=== PATIENT | female | born 1965 | race African-American/Black ===

== ENCOUNTER 2017-01-28 14:28 | Emergency (ER) | payer SELFPAY ==
[2017-01-28] MEDS ORDERED: ASPIRIN 81 MG TABLET, CHEWABLE PO ONE (15:08)
--- NOTE | 2017-01-28 15:14 | ER Document Report ---
ED General - General Chief Complaint: Chest Pain Stated Complaint: CHEST PAIN Time Seen by Provider: 01/28/17 15:08 Notes: Cardiac 51 years old female presents today with sudden onset of epigastric to substernal chest pain radiating to the back just about 2 when she was having her lunch. The pain is still present it is about 8/10 in intensity. Not associated with any nausea vomiting palpitation or diaphoresis. Denies any left arm numbness tingling sensation. She had similar symptoms before in 2013, had complete cardiac workup including cardiac catheterization, which turned out to be normal according to her. TRAVEL OUTSIDE OF THE [place] IN LAST 30 DAYS: No - Related Data Allergies/Adverse Reactions: acetaminophen [From Vicodin] Adverse Reaction (Verified 01/28/17 14:57) hydrocodone [From Vicodin] Adverse Reaction (Verified 01/28/17 14:57) Past Medical History - Social History Smoking Status: Never Smoker Chew tobacco use (# tins/day): No Frequency of alcohol use: None Drug Abuse: None Family History: Reviewed & Not Pertinent Patient has suicidal ideation: No Patient has homicidal ideation: No - Past Medical History Cardiac Medical History: Reports: Hx Hypercholesterolemia, Hx Hypertension Endocrine Medical History: Reports: Hx Diabetes Mellitus Type 2 Renal/ Medical History: Denies: Hx Peritoneal Dialysis Past Surgical History: Reports: Hx Hysterectomy, Hx Orthopedic Surgery - bilateral shoulder Review of Systems - Review of Systems Notes: REVIEW OF SYSTEMS: CONSTITUTIONAL : Denies fever, chills, or sweats. Denies recent illness. EENT: Denies eye, ear, throat, or mouth pain or symptoms. Denies nasal or sinus congestion or discharge. Denies throat, tongue, or mouth swelling or difficulty swallowing. CARDIOVASCULAR: Denies chest pain. Denies palpitations or racing or irregular heart beat. Denies ankle edema. RESPIRATORY: Denies cough, cold, or chest congestion. Denies shortness of breath, difficulty breathing, or wheezing. GASTROINTESTINAL: . GENITOURINARY: Denies difficulty urinating, painful urination, burning, frequency, blood in urine, or discharge. FEMALE GENITOURINARY: Denies vaginal bleeding, heavy or abnormal periods, irregular periods. Denies vaginal discharge or odor. MUSCULOSKELETAL: Denies back or neck pain or stiffness. Denies joint pain or swelling. SKIN: Denies rash, lesions or sores. HEMATOLOGIC : Denies easy bruising or bleeding. LYMPHATIC: Denies swollen, enlarged glands. NEUROLOGICAL: Denies confusion or altered mental status. Denies passing out or loss of consciousness. Denies dizziness or lightheadedness. Denies headache. Denies weakness or paralysis or loss of use of either side. Denies problems with gait or speech. Denies sensory loss, numbness, or tingling. Denies seizures. PSYCHIATRIC: Denies anxiety or stress. Denies depression, suicidal ideation, or homicidal ideation. ALL OTHER SYSTEMS REVIEWED AND NEGATIVE. PHYSICAL EXAMINATION: GENERAL: Well-appearing, well-nourished and in no acute distress. HEAD: Atraumatic, normocephalic. EYES: Pupils equal round and reactive to light, extraocular movements intact, conjunctiva are normal. ENT: Nares patent, oropharynx clear without exudates. Moist mucous membranes. NECK: Normal range of motion, supple without lymphadenopathy LUNGS: Breath sounds clear to auscultation bilaterally and equal. No wheezes rales or rhonchi. HEART: Regular rate and rhythm without murmurs ABDOMEN: Soft, nontender, nondistended abdomen. No guarding, no rebound. No masses appreciated. Female : deferred Musculoskeletal: Normal range of motion, no pitting or edema. No cyanosis. NEUROLOGICAL: Cranial nerves grossly intact. Normal speech, normal gait. Normal sensory, motor exams PSYCH: Normal mood, normal affect. SKIN: Warm, Dry, normal turgor, no rashes or lesions noted. Dictation was performed using u[employer]sit voice recognition software Physical Exam - Vital signs Vitals: Resp Pulse Ox 19 98 01/28/17 14:46 01/28/17 14:46 Course - Re-evaluation Re-evalutation: 01/28/17 19:18 She was reevaluated 3 times prior to this, her lab reports as well as ultrasound report was discussed with her. She was told that she has a fatty infiltration of the liver need to follow-up with primary care physician as well as reduce intake of fat. - Vital Signs Vital signs: Temp Pulse Resp BP Pulse Ox 98.7 F 20 106/69 97 01/28/17 14:49 01/28/17 18:01 01/28/17 18:01 01/28/17 18:01 - Laboratory Result Diagrams: 01/28/17 14:50 01/28/17 14:50 Laboratory results interpreted by me: 12/15/17 14:50 Glucose 314 H - Diagnostic Test Radiology results interpreted by me: 01/28/17 19:18 Ultrasound report as well as x-ray report was reviewed results dictated by radiologist Discharge - Discharge Clinical Impression: Fatty liver, GERD with esophagitis Abdominal pain Qualifiers: Abdominal location: upper abdomen, unspecified Qualified Code(s): R10.10 - Upper abdominal pain, unspecified Condition: Fair Disposition: HOME, SELF-CARE Instructions: Esophagitis ([facility]), Prilosec (Acid Pump Inhibitor) ([facility])
[2017-01-28 15:27] LABS: ABSOLUTE EOSINOPHILS # (AUTO) 0.1 10^3/uL (0.0-0.6); ABSOLUTE LYMPHOCYTES (AUTO) 2.2 10^3/uL (0.5-4.7); ABSOLUTE MONOCYTES (AUTO) 0.5 10^3/uL (0.1-1.4); ABSOLUTE NEUT (AUTO) 2.5 10^3/uL (1.7-8.2); BASOPHILS % (AUTO) 0.4 % (0-2); EOSINOPHILS % (AUTO) 1.2 % (0-6); HEMATOCRIT 37.8 % (36.0-47.0); HEMOGLOBIN 12.9 g/dL (12.0-15.5); HGB HCT DIFFERENCE 0.9; LYMPHOCYTES % (AUTO) 41.1 % (13-45); MEAN CORPUSCULAR HEMOGLOBIN 28.1 pg (27.0-33.4); MEAN CORPUSCULAR VOLUME 83 fl (80-97); MONOCYTES % (AUTO) 9.3 % (3-13); RED BLOOD COUNT 4.57 10^6/uL (3.72-5.28); RED CELL DISTRIBUTION WIDTH 13.3 % (11.5-14.0); WHITE BLOOD COUNT 5.2 10^3/uL (4.0-10.5)
[2017-01-28 15:45] LABS: ALANINE AMINOTRANSFERASE 29 U/L (9-52); ALBUMIN 3.9 g/dL (3.5-5.0); ALKALINE PHOSPHATASE 91 U/L (38-126); ANION GAP 14 (5-19); ASPARTATE AMINO TRANSFERASE 14 U/L (14-36); BILIRUBIN,DIRECT 0.1 mg/dL (0.0-0.4); BILIRUBIN,TOTAL 0.2 mg/dL (0.2-1.3); BLOOD UREA NITROGEN 10 mg/dL (7-20); CALCIUM 9.5 mg/dL (8.4-10.2); CARBON DIOXIDE 24 mmol/L (22-30); CHLORIDE 101 mmol/L (98-107); CREATINE KINASE 47 U/L (30-135); CREATININE RESULT 0.52 mg/dL (0.52-1.25); GLUCOSE 314 mg/dL (75-110); POTASSIUM 4.2 mmol/L (3.6-5.0); TOTAL PROTEIN 6.7 g/dL (6.3-8.2)
[2017-01-28 15:58] LABS: CREATINE KINASE MB < 0.22 ng/mL (<4.55); TROPONIN I < 0.012 ng/mL
--- NOTE | 2017-01-28 16:16 | RADIOLOGY REPORT (SQ) ---
EXAM DESCRIPTION: CHEST SINGLE VIEW COMPLETED DATE/TIME: 01/28/2017 4:00 pm REASON FOR STUDY: Chest pain COMPARISON: None. EXAM PARAMETERS: NUMBER OF VIEWS: One view. TECHNIQUE: Single frontal radiographic view of the chest acquired. RADIATION DOSE: NA LIMITATIONS: None. FINDINGS: LUNGS AND PLEURA: No opacities, masses or pneumothorax. No pleural effusion. MEDIASTINUM AND HILAR STRUCTURES: No masses. Contour normal. HEART AND VASCULAR STRUCTURES: Heart normal in size. Normal vasculature. BONES: No acute findings. HARDWARE: None in the chest. OTHER: No other significant finding. IMPRESSION: NO ACUTE RADIOGRAPHIC FINDING IN THE CHEST. TECHNICAL DOCUMENTATION: JOB ID: [id number] [employer]- All Rights Reserved
--- NOTE | 2017-01-28 16:28 | RADIOLOGY REPORT (SQ) ---
EXAM DESCRIPTION: U/S ABDOMEN LIMITED W/O DOP COMPLETED DATE/TIME: 01/28/2017 4:17 pm REASON FOR STUDY: Gallstones COMPARISON: None. TECHNIQUE: Dynamic and static grayscale images acquired of the abdomen and recorded on PACS. Additio nal selected color Doppler and spectral images recorded. LIMITATIONS: Midline bowel gas FINDINGS: PANCREAS: Midline pancreas unremarkable LIVER: Normal size. No masses. Mild increased echogenicity, question mild diffuse hepatocellular di sease or fatty infiltration. LIVER VASCULATURE: Normal directional flow of the main portal vein and hepatic veins. GALLBLADDER: No stones. Normal wall thickness. No pericholecystic fluid. ULTRASOUND-DETECTED LOPEZ'S SIGN: Negative. INTRAHEPATIC DUCTS AND COMMON DUCT: CBD and intrahepatic ducts normal caliber. No filling defects. D istal common duct not well seen due to midline bowel gas INFERIOR VENA CAVA: Not well seen AORTA: No aneurysm. RIGHT KIDNEY: Normal size. Normal echogenicity. No solid or suspicious masses. No hydronephrosis. No calcifications. PERITONEAL AND RIGHT PLEURAL SPACE: No ascites or effusions. OTHER: No other significant findings. IMPRESSION: Echogenic liver from fatty infiltration or diffuse hepatocellular disease No gallstones, gallbladder wall thickening or pericholecystic fluid. No biliary ductal dilatation TECHNICAL DOCUMENTATION: JOB ID: [id number] [employer]- All Rights Reserved
[2017-01-28] MEDS ORDERED: MAG CARB/AL HYDROX/ALGINIC AC 355 ML BOTTLE PO PRN (17:18)
[2017-01-28] MEDS ORDERED: MAG HYDROX/AL HYDROX/SIMETH SUSP 30 ML UDCUP PO PRN (17:18)
[2017-01-28] MEDS ORDERED: LIDOCAINE 2% VISCOUS SOLN 20 ML UDCUP PO ONE (17:18)
[2017-01-28] MEDS ORDERED: KETOROLAC TROMETHAMINE INJ/PF 30 MG/1 ML SDV IV ONE (18:24)
[2017-01-28 20:02] VITALS: BP 112/76
--- NOTE | 2017-01-29 05:40 | EKG REPORT ---
SEVERITY:- NORMAL ECG - SINUS RHYTHM : Confirmed by: Hawk Rivas 29-Jan-2017 05:40:20
== END 2017-01-28 20:21 | disposition home or self-care (01) ==
LOC: ER 14:28
DX: K76.0 Fatty (change of) liver, not elsewhere classified (principal); K21.0 Gastro-esophageal reflux disease with esophagitis; R10.10 Upper abdominal pain, unspecified; R07.9 Chest pain, unspecified; R10.13 Epigastric pain; M54.9 Dorsalgia, unspecified
CPT/HCPCS: 93005; 99285; 96374; 36415; 82553; 82550; 85025; 80053; 84484; 71010; 76705; 93010; J3490 ×2; J1885

== ENCOUNTER 2017-05-27 15:58 | Emergency (ER) | payer SELFPAY ==
[2017-05-27 16:25] VITALS: BP 148/88
--- NOTE | 2017-05-27 16:40 | ER Document Report ---
HPI - HPI Patient complains to provider of: right ches, neck shoulder pain Onset: Other - few hours ago Pain Level: 4 Context: 52 yo DM (insulin) female c/o right neck, shoulder, upper chest pain and mild headache since she tried to get jacket off at 1:30 pm while at work and felt a sudden onset of painful pull to the area. Worse now with moving right margie turning head to the left. No recent illness. No fever or chills. PCP: Jonnathan MAZARIEGOS- lives in [facility] [place]. - CONSTITUTIONAL Constitutional: DENIES: Fever, Chills - NEURO Neurology: REPORTS: Headache - MUSCULOSKELETAL Musculoskeletal: REPORTS: Extremity pain - right arm Past Medical History - General Information source: Patient - Social History Smoking Status: Never Smoker Chew tobacco use (# tins/day): No Frequency of alcohol use: None Drug Abuse: None Lives with: Spouse/Significant other Family History: Reviewed & Not Pertinent Patient has suicidal ideation: No Patient has homicidal ideation: No - Past Medical History Cardiac Medical History: Reports: Hx Hypercholesterolemia, Hx Hypertension Endocrine Medical History: Reports: Hx Diabetes Mellitus Type 2 Renal/ Medical History: Denies: Hx Peritoneal Dialysis Past Surgical History: Reports: Hx Hysterectomy, Hx Orthopedic Surgery - bilateral shoulder Vertical Provider Document - CONSTITUTIONAL Agree With Documented VS: Yes Exam Limitations: No Limitations General Appearance: Mild Distress - INFECTION CONTROL TRAVEL OUTSIDE OF THE [place] IN LAST 30 DAYS: No - HEENT HEENT: Normocephalic - NECK Neck: Supple - tender right SCM to the clavicle insertion and trapezius muscle top and posterior right shoulder - RESPIRATORY Respiratory: Breath Sounds Normal, No Respiratory Distress - CARDIOVASCULAR Cardiovascular: Regular Rate, Regular Rhythm - MUSCULOSKELETAL/EXTREMETIES Musculoskeletal/Extremeties: MAEW - NEURO Level of Consciousness: Awake, Alert - DERM Integumentary: Warm, Dry, No Rash Course - Re-evaluation Re-evalutation: 05/27/17 16:58 Patient states that she is okay taking hydrocodone as long as she takes a Benadryl. - Vital Signs Vital signs: Temp Pulse Resp BP Pulse Ox 98.6 F 69 16 148/88 H 99 05/27/17 16:23 05/27/17 16:23 05/27/17 16:23 05/27/17 16:23 05/27/17 16:23 Discharge - Discharge Clinical Impression: right neck muscle strain Condition: Good Disposition: HOME, SELF-CARE Instructions: Warm Packs ([facility]), Ibuprofen (General) ([facility]), Muscle Relaxers ([facility] ), Muscle Strain ([facility]), Oral Narcotic Medication ([facility]) Additional Instructions: warm compress Gentle range of motion [id number] Motrin Flexeril as a muscle relaxer hydrocodone few pain pills Prescriptions: Hydrocodone Bit/Acetaminophen [Hydrocodon-Acetaminophen 5-325] 1 each PO Q4HP PRN #10 tablet PRN Reason: Forms: Return to Work
== END 2017-05-27 17:07 | disposition home or self-care (01) ==
LOC: ER 15:58
DX: S16.1XXA Strain of muscle, fascia and tendon at neck level, initial encounter (principal); M54.2 Cervicalgia; M25.511 Pain in right shoulder; R07.9 Chest pain, unspecified; R51 Headache; X58.XXXA Exposure to other specified factors, initial encounter; Y99.0 Civilian activity done for income or pay; I10 Essential (primary) hypertension; E11.9 Type 2 diabetes mellitus without complications
CPT/HCPCS: 99283

== ENCOUNTER 2017-06-28 10:11 | Emergency (ER) | payer SELFPAY ==
[2017-06-28] MEDS ORDERED: OXYCODONE HCL IR 5 MG TABLET PO ONE (10:32)
--- NOTE | 2017-06-28 10:35 | ER Document Report ---
ED Medical Screen (RME) - General Chief Complaint: Groin Pain Stated Complaint: SHORTNESS OF BREATH, GROIN PAIN Time Seen by Provider: 06/28/17 10:23 Notes: RAPID MEDICAL EVALUATION DISCLOSURE I have seen this patient as part of a Rapid Medical Evaluation and, if applicable, placed any initially appropriate orders. The patient will be seen and fully evaluated, including a full history and physical exam, by a provider ( in Main ED or Fast Track) when a room becomes available. 52-year-old female here with complaints of sudden onset right groin pain that started yesterday evening and has progressively worsened since then. Pain is worse with movement. She has tried taking Aleve for the symptoms. This morning , she started to have some shortness of breath and chest tightness that has also progressively worsened. She told nursing staff got worse whenever the groin pain got worse however she is unable to tell me if there is any association. She is able to tell me the chest tightness does not worsen with exertion. She has a previous history of TIA but denies history of CAD dissection hernias. EXAM CTAB RRR Minimal right proximal medial thigh inguinal crease TTP (however exam is limited in triage room) NOTE Patient reports no allergy to oxycodone and that she has taken this in the past TRAVEL OUTSIDE OF THE [place] IN LAST 30 DAYS: No - Related Data Allergies/Adverse Reactions: acetaminophen [From Vicodin] Adverse Reaction (Verified 06/28/17 10:21) hydrocodone [From Vicodin] Adverse Reaction (Verified 06/28/17 10:21) Past Medical History - Past Medical History Cardiac Medical History: Reports: Hx Hypercholesterolemia, Hx Hypertension Endocrine Medical History: Reports: Hx Diabetes Mellitus Type 2 Renal/ Medical History: Denies: Hx Peritoneal Dialysis Past Surgical History: Reports: Hx Hysterectomy, Hx Orthopedic Surgery - bilateral shoulder
[2017-06-28 11:08] LABS: ABSOLUTE LYMPHOCYTES (AUTO) 1.9 10^3/uL (0.5-4.7); ABSOLUTE MONOCYTES (AUTO) 0.4 10^3/uL (0.1-1.4); ABSOLUTE NEUT (AUTO) 1.6 10^3/uL (1.7-8.2); BASOPHILS % (AUTO) 0.8 % (0-2); HEMATOCRIT 41.8 % (36.0-47.0); HEMOGLOBIN 13.9 g/dL (12.0-15.5); LYMPHOCYTES % (AUTO) 47.1 % (13-45); MEAN CORPUSCULAR HEMOGLOBIN 27.6 pg (27.0-33.4); MEAN CORPUSCULAR HGB CONC 33.2 g/dL (32.0-36.0); MEAN CORPUSCULAR VOLUME 83 fl (80-97); MONOCYTES % (AUTO) 10.5 % (3-13); PLATELET COUNT 222 10^3/uL (150-450); RED BLOOD COUNT 5.04 10^6/uL (3.72-5.28); RED CELL DISTRIBUTION WIDTH 13.4 % (11.5-14.0); SEGMENTED NEUTROPHILS % (AUTO) 40.6 % (42-78); TOTAL CELLS COUNTED % (AUTO) 100 %
--- NOTE | 2017-06-28 11:26 | RADIOLOGY REPORT (SQ) ---
EXAM DESCRIPTION: CHEST 2 VIEWS COMPLETED DATE/TIME: 06/28/2017 11:02 am REASON FOR STUDY: CP SOB COMPARISON: AP chest 01/28/2017 EXAM PARAMETERS: NUMBER OF VIEWS: two views TECHNIQUE: Digital Frontal and Lateral radiographic views of the chest acquired. RADIATION DOSE: NA LIMITATIONS: none FINDINGS: LUNGS AND PLEURA: No opacities, masses or pneumothorax. No pleural effusion. MEDIASTINUM AND HILAR STRUCTURES: No masses or contour abnormalities. HEART AND VASCULAR STRUCTURES: Heart normal size. No evidence for failure. BONES: No acute findings. HARDWARE: None in the chest. OTHER: No other significant finding. IMPRESSION: NO ACUTE RADIOGRAPHIC FINDING IN THE CHEST. TECHNICAL DOCUMENTATION: JOB ID: [id number] [employer] All Rights Reserved Reading location - IP/workstation name: [email or web address]
[2017-06-28 11:30] LABS: ANION GAP 13 (5-19); BLOOD UREA NITROGEN 13 mg/dL (7-20); CALCIUM 9.6 mg/dL (8.4-10.2); CARBON DIOXIDE 28 mmol/L (22-30); CHLORIDE 98 mmol/L (98-107); POTASSIUM 4.1 mmol/L (3.6-5.0); SODIUM 138.9 mmol/L (137-145)
--- NOTE | 2017-06-28 11:37 | ER Document Report ---
ED General - General Chief Complaint: Groin Pain Stated Complaint: SHORTNESS OF BREATH, GROIN PAIN Time Seen by Provider: 06/28/17 10:23 Mode of Arrival: Ambulatory Information source: Patient Notes: 52-year-old female needs a right groin pain since yesterday. Patient denies any trauma denies any fevers or chills denies any nausea vomiting diarrhea patient admits to shortness of breath intermittent TRAVEL OUTSIDE OF THE [place] IN LAST 30 DAYS: No - HPI Onset: Yesterday Onset/Duration: Sudden Quality of pain: Sharp Severity: Mild Pain Level: 1 Associated symptoms: Other Exacerbated by: Denies Relieved by: Denies Similar symptoms previously: No Recently seen / treated by doctor: No - Related Data Allergies/Adverse Reactions: acetaminophen [From Vicodin] Adverse Reaction (Verified 06/28/17 10:21) hydrocodone [From Vicodin] Adverse Reaction (Verified 06/28/17 10:21) Past Medical History - Social History Smoking Status: Never Smoker Cigarette use (# per day): No Chew tobacco use (# tins/day): No Smoking Education Provided: No Frequency of alcohol use: None Drug Abuse: None Family History: Reviewed & Not Pertinent Patient has suicidal ideation: No Patient has homicidal ideation: No - Past Medical History Cardiac Medical History: Reports: Hx Hypercholesterolemia, Hx Hypertension Endocrine Medical History: Reports: Hx Diabetes Mellitus Type 2 Renal/ Medical History: Denies: Hx Peritoneal Dialysis Past Surgical History: Reports: Hx Hysterectomy, Hx Orthopedic Surgery - bilateral shoulder Review of Systems - Review of Systems Notes: REVIEW OF SYSTEMS: CONSTITUTIONAL : Denies fever, chills, or sweats. Denies recent illness. EENT: Denies eye, ear, throat, or mouth pain or symptoms. Denies nasal or sinus congestion or discharge. Denies throat, tongue, or mouth swelling or difficulty swallowing. CARDIOVASCULAR: Denies chest pain. Denies palpitations or racing or irregular heart beat. Denies ankle edema. RESPIRATORY: Denies cough, cold, or chest congestion. Denies shortness of breath, difficulty breathing, or wheezing. GASTROINTESTINAL: Denies abdominal pain or distention. Denies nausea, vomiting , or diarrhea. Denies blood in vomitus, stools, or per rectum. Denies black, tarry stools. Denies constipation. GENITOURINARY: Denies difficulty urinating, painful urination, burning, frequency, blood in urine, or discharge. FEMALE GENITOURINARY: Denies vaginal bleeding, heavy or abnormal periods, irregular periods. Denies vaginal discharge or odor. MUSCULOSKELETAL: Admits to right groin pain SKIN: Denies rash, lesions or sores. HEMATOLOGIC : Denies easy bruising or bleeding. LYMPHATIC: Denies swollen, enlarged glands. NEUROLOGICAL: Denies confusion or altered mental status. Denies passing out or loss of consciousness. Denies dizziness or lightheadedness. Denies headache. Denies weakness or paralysis or loss of use of either side. Denies problems with gait or speech. Denies sensory loss, numbness, or tingling. Denies seizures. PSYCHIATRIC: Denies anxiety or stress. Denies depression, suicidal ideation, or homicidal ideation. ALL OTHER SYSTEMS REVIEWED AND NEGATIVE. PHYSICAL EXAMINATION: GENERAL: Well-appearing, well-nourished and in no acute distress. HEAD: Atraumatic, normocephalic. EYES: Pupils equal round and reactive to light, extraocular movements intact, conjunctiva are normal. ENT: Nares patent, oropharynx clear without exudates. Moist mucous membranes. NECK: Normal range of motion, supple without lymphadenopathy LUNGS: Breath sounds clear to auscultation bilaterally and equal. No wheezes rales or rhonchi. HEART: Regular rate and rhythm without murmurs ABDOMEN: Soft, nontender, nondistended abdomen. No guarding, no rebound. No masses appreciated. Female : External examination performed with nurse in the room notes tenderness in the groin itself but not including the pubis there is no erythema Musculoskeletal: Normal range of motion, no pitting or edema. No cyanosis. NEUROLOGICAL: Cranial nerves grossly intact. Normal speech, normal gait. Normal sensory, motor exams PSYCH: Normal mood, normal affect. SKIN: Warm, Dry, normal turgor, no rashes or lesions noted. Dictation was performed using [employer] voice recognition software Physical Exam - Vital signs Vitals: Temp Pulse Resp BP Pulse Ox 98.4 F 97 20 132/80 H 94 06/28/17 10:16 06/28/17 10:16 06/28/17 10:16 06/28/17 10:16 06/28/17 10:16 Course - Re-evaluation Re-evalutation: 06/28/17 11:37 There is no external signs of infection or concerns, ultrasound pending to rule out a DVT 06/28/17 12:22 Doppler is negative, glucose is elevated no sign of infectious process, patient given insulin will recheck her blood sugar 06/28/17 14:05 pt notes her glucose is elevated since she doesnt have needles to use, we provided it to her . pt will be treated as muscle pain as i dont see any sign of infection or any other life threatening concerns. pt made aware to return immediately if symptoms worsen as a specific diagnosis is not noted. After performing a Medical Screening Examination, I estimate there is LOW risk for OPEN FRACTURE, COMPARTMENT SYNDROME, TENDON RUPTURE, ACUTE NEUROVASCULAR INJURY, or RETAINED FOREIGN BODY, thus I consider the discharge disposition reasonable. Also, there is no evidence or peritonitis, sepsis, or toxicity. I have reevaluated this patient multiple times and no significant life threatening changes are noted. The patient and I have discussed the diagnosis and risks, and we agree with discharging home with close follow-up with the understanding that symptoms and presentations can change. We also discussed returning to the Emergency Department immediately if new or worsening symptoms occur. We have discussed the symptoms which are most concerning (e.g., changing or worsening pain, fever, numbness, weakness, cool or painful digits) that necessitate immediate return. - Vital Signs Vital signs: Temp Pulse Resp BP Pulse Ox 98.4 F 97 20 132/80 H 94 06/28/17 10:16 06/28/17 10:16 06/28/17 10:16 06/28/17 10:16 06/28/17 10:16 - Laboratory Result Diagrams: 06/28/17 10:51 06/28/17 10:51 Laboratory results interpreted by me: 06/28/17 06/28/17 06/28/17 10:20 10:51 10:51 Seg Neutrophils % 40.6 L Lymphocytes % 47.1 H Absolute Neutrophils 1.6 L Glucose 518 H* POC Glucose Urine Glucose (UA) >=500 H Urine Ketones TRACE H 06/28/17 13:27 Seg Neutrophils % Lymphocytes % Absolute Neutrophils Glucose POC Glucose 364 H Urine Glucose (UA) Urine Ketones Critical Care Note - Critical Care Note Total time excluding time spent on procedures (mins): 40 Comments: 40 minutes of critical care time spent in direct contact evaluating and reevaluating the patient, treating symptoms, reviewing labs and studies and speaking with family and consultants excluding any procedures Discharge - Discharge Clinical Impression: Hyperglycemia, Right groin pain Condition: Stable Disposition: HOME, SELF-CARE Instructions: Muscle Strain ([facility]) Prescriptions: Cyclobenzaprine HCl [Flexeril 10 mg Tablet] 10 mg PO TIDP PRN #20 tab PRN Reason: Referrals: STEPHANI JURADO, [employer] ATTENDANT [Primary Care Provider] - Follow up tomorrow
[2017-06-28 11:39] LABS: GLUCOSE 518 mg/dL (75-110)
[2017-06-28 11:41] LABS: NT PRO BNP 37 pg/mL (5-900)
[2017-06-28 11:42] LABS: TROPONIN I < 0.012 ng/mL
[2017-06-28 11:43] LABS: APPEARANCE,URINE CLEAR; BILIRUBIN,URINE NEGATIVE (NEGATIVE); COLOR,URINE STRAW; GLUCOSE, URINE >=500 mg/dL (NEGATIVE); KETONES,URINE TRACE mg/dL (NEGATIVE); LEUKOCYTE ESTERASE,URINE NEGATIVE (NEGATIVE); NITRITE,URINE NEGATIVE (NEGATIVE); PROTEIN,URINE NEGATIVE (NEGATIVE); UROBILINOGEN,URINE NEGATIVE mg/dL (<2.0)
[2017-06-28] MEDS ORDERED: INSULIN REG, HUMAN 100 UNIT/ML 3 ML VIAL (PYX) SUBCUT ONE (11:48)
[2017-06-28 14:24] VITALS: BP 128/78
--- NOTE | 2017-06-28 21:14 | EKG REPORT ---
SEVERITY:- NORMAL ECG - SINUS RHYTHM : Confirmed by: Hawk Rivas 28-Jun-2017 21:13:36
--- NOTE | 2017-06-29 08:15 | XCELERA REPORT ---
[address] [address] Lower Extremity Venous Evaluation Name: KENZIE SAMUEL Age: 52 yrs Gender: Female : 1965 Patient Status: Emergency Patient Location: ER Study Date: 06/28/2017 11:56 AM Procedure: Color flow and duplex imaging of the veins of the right lower extremity as well as the left Common Femoral vein. Reason For Study: RLE Ordering Physician: ANA GOTTLIEB Performed By: Rasta Lema Right Sided Venous Evaluation Normal vessel filling wall to wall, compression and augmentation as well as Colour flow down to the infrageniculate veins. Left Sided Venous Evaluation The left common femoral vein is fully compressible. Spontaneous and phasic flow is present in the left common femoral vein. Interpretation Summary No duplex evidence of DVT or obstruction in the right lower extremity nor in the left Common Femoral vein. : ANA GOTTLIEB > Javad Curry
== END 2017-06-28 14:40 | disposition home or self-care (01) ==
LOC: ER 10:11
DX: R06.02 Shortness of breath (principal); R10.30 Lower abdominal pain, unspecified; E11.65 Type 2 diabetes mellitus with hyperglycemia; E78.00 Pure hypercholesterolemia, unspecified; I10 Essential (primary) hypertension; Z88.6 Allergy status to analgesic agent; Z90.710 Acquired absence of both cervix and uterus
CPT/HCPCS: 93005; 99285; 36415; 82962; 85025; 80048; 81001; 84484; 83880; 93971 ×2; 71046; 93010; J1815

== ENCOUNTER 2017-07-12 09:42 | Emergency (ER) | payer SELFPAY ==
[2017-07-12 10:08] LABS: ABSOLUTE EOSINOPHILS # (AUTO) 0.1 10^3/uL (0.0-0.6); ABSOLUTE LYMPHOCYTES (AUTO) 1.9 10^3/uL (0.5-4.7); ABSOLUTE MONOCYTES (AUTO) 0.4 10^3/uL (0.1-1.4); ABSOLUTE NEUT (AUTO) 2.4 10^3/uL (1.7-8.2); BASOPHILS % (AUTO) 0.6 % (0-2); EOSINOPHILS % (AUTO) 1.2 % (0-6); HEMATOCRIT 39.1 % (36.0-47.0); LYMPHOCYTES % (AUTO) 39.4 % (13-45); MEAN CORPUSCULAR HEMOGLOBIN 27.7 pg (27.0-33.4); MEAN CORPUSCULAR HGB CONC 33.1 g/dL (32.0-36.0); MEAN CORPUSCULAR VOLUME 84 fl (80-97); MONOCYTES % (AUTO) 8.4 % (3-13); PLATELET COUNT 204 10^3/uL (150-450); RED BLOOD COUNT 4.68 10^6/uL (3.72-5.28); RED CELL DISTRIBUTION WIDTH 13.5 % (11.5-14.0); SEGMENTED NEUTROPHILS % (AUTO) 50.4 % (42-78); TOTAL CELLS COUNTED % (AUTO) 100 %; WHITE BLOOD COUNT 4.8 10^3/uL (4.0-10.5)
--- NOTE | 2017-07-12 10:36 | RADIOLOGY REPORT (SQ) ---
EXAM DESCRIPTION: CHEST SINGLE VIEW COMPLETED DATE/TIME: 07/12/2017 10:25 am REASON FOR STUDY: bed 16 cp COMPARISON: 06/28/2017 EXAM PARAMETERS: NUMBER OF VIEWS: One view. TECHNIQUE: Single frontal radiographic view of the chest acquired. RADIATION DOSE: NA LIMITATIONS: None. FINDINGS: LUNGS AND PLEURA: No opacities, masses or pneumothorax. No pleural effusion. MEDIASTINUM AND HILAR STRUCTURES: No masses. Contour normal. HEART AND VASCULAR STRUCTURES: Heart normal in size. Normal vasculature. BONES: No acute findings. HARDWARE: None in the chest. OTHER: No other significant finding. IMPRESSION: NO ACUTE RADIOGRAPHIC FINDING IN THE CHEST. TECHNICAL DOCUMENTATION: JOB ID: [id number] [employer]- All Rights Reserved Reading location - IP/workstation name: [email or web address]
--- NOTE | 2017-07-12 10:42 | ER Document Report ---
ED Cardiac <BILLY DANG - Last Filed: 07/12/17 11:45> - General Mode of Arrival: Medic Information source: Patient TRAVEL OUTSIDE OF THE [place] IN LAST 30 DAYS: No <PACO NAIR - Last Filed: 07/12/17 11:52> - General Chief Complaint: Chest Pain Stated Complaint: CHEST PAIN Time Seen by Provider: 07/12/17 10:32 Notes: 52 y.o female with HLD, HTN, and type 2 DM presents to the ED with CP of onset around 0830 this morning on her way to work. Pt describes it as a sudden tightness that went straight to her back and up under her shoulder blade on the left side. She reports that she was just going to drive here because she was far away from home but the pain worsened so she called EMS. Pt complains that it is hard to breath due to the tightness; she denies any pain when she coughs. She reports a normal cardiac catheterization in the past and denies any problems with her heart in the past. (PACO NAIR) - Related Data Allergies/Adverse Reactions: acetaminophen [From Vicodin] Adverse Reaction (Verified 06/28/17 10:21) hydrocodone [From Vicodin] Adverse Reaction (Verified 06/28/17 10:21) Past Medical History - General Information source: Patient - Social History Smoking Status: Unknown if Ever Smoked Family History: Reviewed & Not Pertinent - Past Medical History Cardiac Medical History: Reports: Hx Hypercholesterolemia, Hx Hypertension Endocrine Medical History: Reports: Hx Diabetes Mellitus Type 2 Renal/ Medical History: Denies: Hx Peritoneal Dialysis Past Surgical History: Reports: Hx Hysterectomy, Hx Orthopedic Surgery - bilateral shoulder <PACO NAIR - Last Filed: 07/12/17 11:52> Review of Systems - Review of Systems Constitutional: No symptoms reported EENT: No symptoms reported Cardiovascular: See HPI, Chest pain - tightness Respiratory: See HPI, Hurts to breathe Gastrointestinal: No symptoms reported Genitourinary: No symptoms reported Female Genitourinary: No symptoms reported Musculoskeletal: No symptoms reported Skin: No symptoms reported Hematologic/Lymphatic: No symptoms reported Neurological/Psychological: No symptoms reported -: Yes All other systems reviewed and negative <PACO NAIR - Last Filed: 07/12/17 11:52> Physical Exam <BILLY DANG - Last Filed: 07/12/17 11:45> <PACO NAIR - Last Filed: 07/12/17 11:52> - Vital signs Vitals: Resp 20 07/12/17 10:06 - Notes Notes: Physical Exam: General: Alert, appears well. HEENT: Normocephalic. Atraumatic. PERRL. Extraocular movements intact. Oropharynx clear. Neck: Supple. Non-tender. Respiratory: No respiratory distress. Clear and equal breath sounds bilaterally. Cardiovascular: Regular rate and rhythm. No murmurs, no peripheral edema. Left anterior chest wall pain and left scapular pain. Abdominal: Morbidly obese. Normal Inspection. Non-tender. No distension. Normal Bowel Sounds. Back: Non-tender. No deformity or step off. Extremities: Moves all four extremities. Upper extremities: Normal inspection. Normal ROM. Lower extremities: Normal inspection. No edema. Normal ROM. Neurological: Normal cognition. AAOx3. Normal speech. (PACO NAIR) Course - Laboratory Result Diagrams: 07/12/17 09:20 07/12/17 10:52 - Diagnostic Test Radiology reviewed: Reports reviewed - Chest x-ray is unremarkable. <BILLY DANG - Last Filed: 07/12/17 11:45> - Laboratory Result Diagrams: 07/12/17 09:20 07/12/17 10:52 <PAOC NAIR - Last Filed: 07/12/17 11:52> - Re-evaluation Re-evalutation: 07/12/17 11:50 The patient's EKG is normal. Lab work is normal other than her chronically elevated blood sugars. Her d-dimer is undetectable. She does provide a history suggesting an abnormal Cardiolite stress test due to her obesity and the diaphragm pushing up on the inferior wall of the heart leading to a cardiac catheterization being done. Cardiac catheterization was normal. (BILLY DANG) - Vital Signs Vital signs: Temp Pulse Resp BP Pulse Ox 07/12/17 10:06 - Laboratory Laboratory results interpreted by me: 07/12/17 07/12/17 09:20 10:52 Creatinine 0.50 L Glucose 343 H Hemoglobin A1c % 13.2 H Total Protein 6.2 L Discharge <BILLY DANG - Last Filed: 07/12/17 11:45> <PACO NAIR - Last Filed: 07/12/17 11:52> - Discharge Clinical Impression: Chest wall pain, Poorly controlled diabetes mellitus Dyspnea Qualifiers: Dyspnea type: unspecified Qualified Code(s): R06.00 - Dyspnea, unspecified Condition: Stable Disposition: HOME, SELF-CARE Additional Instructions: Chest Wall Pain: Your chest pain has been diagnosed as coming from the chest wall. This is often caused by straining the muscles or joints in the chest during physical activity, direct trauma, coughing, or vigorous vomiting. Persons with arthritis are especially prone to this type of pain, due to inflammation of the cartilage joints near the breast bone. Occasionally, no cause can be found. Rest from strenuous physical activity. This kind of chest pain is usually made worse by movement of the chest. Depending on the symptoms, we may prescribe medicine for pain, muscle relaxation, and antiinflammatory effects. If the pain is new, and seems to be due to muscle strain, cold packs can help. Otherwise, apply gentle warmth to the painful area for 15 minutes every hour or two. You should contact the doctor immediately if things change. Further evaluation is needed if you develop a fever or cough, if the nature of the pain changes, or if you become short of breath. Hyperglycemia (High Blood Sugar): You have an abnormally high blood sugar. Uncontrolled high blood sugar leads to early heart disease, strokes, nerve damage, eye damage, and kidney damage. Call the physician if there is faintness, excess sleepiness, or very rapid breathing. Your chest discomfort seems to be related to the chest wall and does not involve your heart or your lungs. Your blood sugars have been poorly controlled for the last several months. You should see your doctor this week and take the copies of the lab work I have provided to review your diabetes management. Take Tylenol and ibuprofen for your chest wall pain as needed. RETURN TO THE EMERGENCY ROOM IF ANY NEW OR WORSENING SYMPTOMS. Referrals: FAUSTO JORDAN, [Primary Care Provider] - Follow up in 3-5 days Scribe Attestation: 07/12/17 11:49 I personally performed the services described in the documentation, reviewed and edited the documentation which was dictated to the scribe in my presence, and it accurately records my words and actions. (BILLY DANG) Scribe Documentation - Scribe Written by Rick:: Rick Gotti [id number] 07/12/2017 acting as scribe for :: Yasmeen <PACO NAIR - Last Filed: 07/12/17 11:52>
[2017-07-12 10:44] LABS: CREATINE KINASE MB 0.51 ng/mL (<4.55)
[2017-07-12 10:48] LABS: TROPONIN I < 0.012 ng/mL
[2017-07-12 11:21] LABS: ALANINE AMINOTRANSFERASE 31 U/L (9-52); ALBUMIN 3.5 g/dL (3.5-5.0); ALKALINE PHOSPHATASE 70 U/L (38-126); ANION GAP 11 (5-19); ASPARTATE AMINO TRANSFERASE 14 U/L (14-36); BILIRUBIN,DIRECT 0.2 mg/dL (0.0-0.4); BILIRUBIN,TOTAL 0.3 mg/dL (0.2-1.3); BLOOD UREA NITROGEN 15 mg/dL (7-20); CALCIUM 9.2 mg/dL (8.4-10.2); CARBON DIOXIDE 27 mmol/L (22-30); CHLORIDE 101 mmol/L (98-107); CREATINE KINASE 44 U/L (30-135); GLUCOSE 343 mg/dL (75-110); POTASSIUM 4.4 mmol/L (3.6-5.0); SODIUM 139.3 mmol/L (137-145); TOTAL PROTEIN 6.2 g/dL (6.3-8.2)
[2017-07-12] MEDS ORDERED: KETOROLAC TROMETHAMINE INJ/PF 30 MG/1 ML SDV IV ONE (11:43)
[2017-07-12 12:07] VITALS: BP 104/62
--- NOTE | 2017-07-12 23:35 | EKG REPORT ---
SEVERITY:- NORMAL ECG - SINUS RHYTHM : Confirmed by: Hawk Rivas 12-Jul-2017 23:34:58
== END 2017-07-12 12:25 | disposition home or self-care (01) ==
LOC: ER 09:42
DX: R07.89 Other chest pain (principal); R06.00 Dyspnea, unspecified; E11.65 Type 2 diabetes mellitus with hyperglycemia; I10 Essential (primary) hypertension; E66.01 Morbid (severe) obesity due to excess calories
CPT/HCPCS: 93005; 99285; 96374; 36415; 82553; 82550; 85025; 80053; 84484; 83036; 85379; 71045; 93010; J1885

== ENCOUNTER 2017-07-25 12:03 | Emergency (ER) | payer OTHER ==
[2017-07-25] MEDS ORDERED: IBUPROFEN 600 MG TABLET PO ONE (12:22)
--- NOTE | 2017-07-25 12:27 | ER Document Report ---
HPI - HPI Pain Level: 4 Notes: Patient is a 52-year-old female with a history of diabetes who presents to the ED complaining of right ankle pain status post injury prior to arrival. Patient states that a food cart was being pushed behind her and ran up her ankle when she was about to turn. Patient states that the pain is primarily to her ankle, but occasionally will radiate up the back of her leg. Weightbearing and ambulation makes the pain worse. She has not noticed any obvious swelling, bruising, or normally. She has not had any medicines for her symptoms. No other concerns or complaints at this time. Denies any headache, fever, chest pain, palpitations, syncope, cough, shortness of breath, wheeze, dyspnea, abdominal pain, nausea/vomiting/diarrhea, urinary retention, dysuria, hematuria , back pain, loss of control of bowel or bladder, numbness/tingling, saddle anesthesia, muscle paralysis/weakness, or rash. - ROS Systems Reviewed and Negative: Yes All other systems reviewed and negative - CONSTITUTIONAL Constitutional: DENIES: Fever, Chills - EENT EENT: DENIES: Sore Throat, Ear Pain, Eye problems - NEURO Neurology: DENIES: Headache, Weakness, Vision blurred, Dizzinesss / Vertigo - CARDIOVASCULAR Cardiovascular: DENIES: Chest pain - RESPIRATORY Respiratory: DENIES: Trouble Breathing, Coughing - GASTROINTESTINAL Gastrointestinal: DENIES: Abdominal Pain, Black / Bloody Stools - URINARY Urinary: DENIES: Dysuria, Urgency, Frequency - MUSCULOSKELETAL Musculoskeletal: REPORTS: Extremity pain - right ankle Past Medical History - Social History Smoking Status: Never Smoker Chew tobacco use (# tins/day): No Frequency of alcohol use: None Drug Abuse: None Family History: Reviewed & Not Pertinent Patient has suicidal ideation: No Patient has homicidal ideation: No - Past Medical History Cardiac Medical History: Reports: Hx Hypercholesterolemia, Hx Hypertension Endocrine Medical History: Reports: Hx Diabetes Mellitus Type 2 Renal/ Medical History: Denies: Hx Peritoneal Dialysis Past Surgical History: Reports: Hx Hysterectomy, Hx Orthopedic Surgery - bilateral shoulder Vertical Provider Document - CONSTITUTIONAL Agree With Documented VS: Yes Notes: PHYSICAL EXAMINATION: GENERAL: Well-appearing, well-nourished and in no acute distress. LUNGS: Breath sounds clear to auscultation bilaterally and equal. No wheezes rales or rhonchi. HEART: Regular rate and rhythm without murmurs, rubs, gallops. Musculoskeletal: Rt ankle: FROM to passive/active. Strength 5+/5. N/V intact distal. + tenderness to the latearl malleolus. No other bony tenderness of the foot. Achilles intact. Extremities: No cyanosis, clubbing, or edema b/l. Peripheral pulses 2+. Capillary refill less than 3 seconds. NEUROLOGICAL: Normal speech, limping gait. Normal sensory, motor exams PSYCH: Normal mood, normal affect. SKIN: Warm, Dry, normal turgor, no rashes or lesions noted. - INFECTION CONTROL TRAVEL OUTSIDE OF THE [place] IN LAST 30 DAYS: No Course - Re-evaluation Re-evalutation: 07/25/17 12:48 Patient is an afebrile, well-hydrated, 52-year-old female who presents to the ED with right ankle pain, suspect contusion. Vitals are acceptable. PE is otherwise unremarkable for any neurovascular compromise, obvious tendon/ ligament rupture, obvious fracture/dislocation, septic joint. X-ray was unremarkable for any acute pathology. Ankle stirrup splint and crutches provided. Motrin was given p.o. today. No other labs or imaging warranted at this time based on H&P. I will send her home with a prescription for naproxen. Conservative measures otherwise for symptoms. Recheck with your PCM in 3-5 days. Consider consult orthopedics. Return to the ED with any worsening/ concerning symptoms otherwise as reviewed discharge. Patient is in agreement. Discharge - Discharge Clinical Impression: Right ankle pain Qualifiers: Chronicity: acute Qualified Code(s): M25.571 - Pain in right ankle and joints of right foot Condition: Stable Disposition: HOME, SELF-CARE Instructions: Ankle Stirrup Splint ([facility]), Use of Crutches ([facility]), Ice & Elevation ([facility]) Additional Instructions: Rest, Ice, Compression, Elevation Use crutches/splint as directed Tylenol/ibuprofen as needed Light stretches daily Strength exercises as able Moist heat and massage may help F/u with your PCP in 3-5 days for a recheck Consider consult(s) with Orthopedics/physical therapy for ongoing/worsening symptoms Return to the ED with any worsening symptoms and/or development of fever, headache, chest pain, palpitations, syncope, shortness of breath, trouble breathing, abdominal pain, n/v/d, muscle weakness/paralysis, numbness/tingling, swelling, redness, or other worsening symptoms that are concerning to you. Prescriptions: Naproxen 500 mg PO BID PRN #30 tablet PRN Reason: Referrals: [facility] [Provider Group] - Follow up as needed FAUSTO JORDAN DO [Primary Care Provider] - Follow up in 3-5 days
--- NOTE | 2017-07-25 12:47 | RADIOLOGY REPORT (SQ) ---
EXAM DESCRIPTION: ANKLE RIGHT COMPLETE COMPLETED DATE/TIME: 07/25/2017 12:36 pm REASON FOR STUDY: rt ankle pain COMPARISON: None. NUMBER OF VIEWS: Three views. TECHNIQUE: AP, lateral, and oblique radiographic images acquired of the right ankle. LIMITATIONS: None. FINDINGS: MINERALIZATION: Normal. BONES: No acute fracture or dislocation. No worrisome bone lesions. Small plantar calcaneal spur JOINTS: No effusions. SOFT TISSUES: Mild lateral soft tissue swelling. No foreign body. OTHER: No other significant finding. IMPRESSION: No acute fracture or ankle joint malalignment. Mild lateral soft tissue swelling TECHNICAL DOCUMENTATION: JOB ID: [id number] [employer]- All Rights Reserved Reading location - IP/workstation name: [email or web address]
== END 2017-07-25 13:01 | disposition home or self-care (01) ==
LOC: ER 12:03
DX: M25.571 Pain in right ankle and joints of right foot (principal); M79.604 Pain in right leg; W22.8XXA Striking against or struck by other objects, initial encounter; E11.9 Type 2 diabetes mellitus without complications; I10 Essential (primary) hypertension
CPT/HCPCS: 99283; 73610; L1902